=== PATIENT | female | born 1970 | race Caucasian/White ===

== ENCOUNTER 2018-12-06 11:02 | Emergency (ER) | payer BC ==
[~2018-12-06] VITALS: Ht 157.5 cm; Wt 105.0 kg
[~2018-12-06 11:02] MED LIST: GLUCOPHAGE500 MG OR; LEVOTHROID25 MCG OR; LEVOTHYROXIN IJ; LORTAB 5 OR; SIMVASTATIN40 MG OR; TARKA1 TA1 OR
[2018-12-06] MEDS ORDERED: VOLTAREN - GENE75 MG PO (11:50)
[2018-12-06 12:12] VITALS: BP 103/47
== END 2018-12-06 12:13 | disposition home or self-care (01) | DRG 538 ==
LOC: ED 11:02
DX: S76.011A Strain of muscle, fascia and tendon of right hip, initial encounter (principal); E11.9 Type 2 diabetes mellitus without complications; I10 Essential (primary) hypertension; E03.9 Hypothyroidism, unspecified; X50.3XXA Overexertion from repetitive movements, initial encounter; Y93.41 Activity, dancing; Y92.89 Other specified places as the place of occurrence of the external cause